=== PATIENT | female | born 1995 | race African-American/Black ===

== ENCOUNTER 2017-05-16 00:19 | Emergency (ER) | payer SELFPAY ==
[~2017-05-16] VITALS: Ht 154.9 cm; Wt 45.0 kg
[2017-05-16 05:45] VITALS: BP 91/51
[2017-05-16 07:21] LABS: CLARITY URINE CLEAR (CLEAR); COLOR URINE YELLOW (YELLOW); KETONES URINE NEGATIVE (NEGATIVE); LEUKOCYTE ESTERASE URINE NEGATIVE (NEGATIVE); NITRITE URINE NEGATIVE (NEGATIVE); OCCULT BLOOD URINE NEGATIVE (NEGATIVE); PH URINE 6.5 (4.5-8.0); PROTEIN URINE NEGATIVE (NEGATIVE); SPECIFIC GRAVITY URINE 1.031 (1.005-1.030)
[2017-05-16] MEDS ORDERED: AZITHROMYCIN 500 MG TABLET PO ONE (08:15)
[2017-05-16] MEDS ORDERED: CEFTRIAXONE SODIUM 250 MG/VIAL IM ONE (08:15)
== END 2017-05-16 08:55 | disposition home or self-care (01) ==
LOC: ER 00:19
DX: B07.8 Other viral warts (principal); F17.200 Nicotine dependence, unspecified, uncomplicated
CPT/HCPCS: 81003; 96372; 99283; J0696; Z7610